=== PATIENT | male | born 1975 | race Caucasian/White ===

== ENCOUNTER 2016-12-07 21:42 | Inpatient (IN) | payer MEDICARE ==
[~2016-12-07] VITALS: Ht 177.8 cm; Wt 70.0 kg
[2016-12-07 23:13] LABS: HEMOGLOBIN 14.5 gm/dl (14.0-17.5); RED BLOOD COUNT 4.78 M/UL (4.20-5.50); WHITE BLOOD COUNT 8.9 K/UL (4.5-11.0)
[2016-12-07 23:42] LABS: BUN/CREATININE RATIO 26 (0-10)
[2016-12-08 03:57] LABS: BUN/CREATININE RATIO 23 (0-10)
[2016-12-08 07:17] LABS: BUN/CREATININE RATIO 20 (0-10)
[2016-12-08 08:03] LABS: HEMOGLOBIN 12.5 gm/dl (14.0-17.5); RED BLOOD COUNT 4.18 M/UL (4.20-5.50); WHITE BLOOD COUNT 13.2 K/UL (4.5-11.0)
[2016-12-08 08:23] LABS: BUN/CREATININE RATIO 17 (0-10)
[2016-12-08 11:35] LABS: BUN/CREATININE RATIO 15 (0-10)
[2016-12-08 15:13] LABS: BUN/CREATININE RATIO 12 (0-10)
[2016-12-08 19:24] LABS: BUN/CREATININE RATIO 11 (0-10)
[2016-12-08 23:19] LABS: BUN/CREATININE RATIO 10 (0-10)
[2016-12-09 04:55] LABS: HEMOGLOBIN 12.5 gm/dl (14.0-17.5); RED BLOOD COUNT 4.16 M/UL (4.20-5.50)
[2016-12-09 05:35] LABS: BUN/CREATININE RATIO 10 (0-10)
[2016-12-10] MEDS ORDERED: HABITROL 21 MG P1 EA TD (17:48)
== END 2016-12-10 18:27 | disposition home or self-care (01) | DRG 917 ==
LOC: CCU 21:42
PROVIDERS: Internal Medicine Pulmonary Disease; ADMIT Internal Medicine
PROC: 5A1935Z Respiratory Ventilation, Less than 24 Consecutive Hours (ICD-10-PCS; principal; 2016-12-07)
DX: T43.622A Poisoning by amphetamines, intentional self-harm, initial encounter (principal); J96.00 Acute respiratory failure, unspecified whether with hypoxia or hypercapnia; M62.82 Rhabdomyolysis; E87.2 Acidosis; T14.91 Suicide attempt; T68.XXXA Hypothermia, initial encounter; X31.XXXA Exposure to excessive natural cold, initial encounter; F19.10 Other psychoactive substance abuse, uncomplicated; E16.2 Hypoglycemia, unspecified; I95.9 Hypotension, unspecified; F32.9 Major depressive disorder, single episode, unspecified; G89.29 Other chronic pain; F60.89 Other specific personality disorders; E87.5 Hyperkalemia; E83.39 Other disorders of phosphorus metabolism; D69.6 Thrombocytopenia, unspecified; F17.210 Nicotine dependence, cigarettes, uncomplicated; F10.21 Alcohol dependence, in remission; Z63.5 Disruption of family by separation and divorce; Z90.49 Acquired absence of other specified parts of digestive tract; Z79.891 Long term (current) use of opiate analgesic; Z79.899 Other long term (current) drug therapy; Y92.9 Unspecified place or not applicable
CPT/HCPCS: 36415; 36600; 71010; 80048; 80053; 81000; 82550; 82553; 82803; 82962; 83605; 83735; 83930; 83935; 84100; 84132; 84484; 85025; 85027; 85610; 85730; 87040; 93005; 94002; 94003; A4628; C9113; J7030; J7070